=== PATIENT | male | born 1960 | race Caucasian/White ===

== ENCOUNTER 2018-03-23 14:25 | Emergency (ER) | payer OTHER ==
[~2018-03-23] VITALS: Ht 180.3 cm; Wt 77.3 kg
[~2018-03-23 14:25] MED LIST: ALBU8.5H8 IH; GABA-533 PO; HYDR-3971 PO; IPRA4AER IH; LISI-662 PO; TEMA15CA PO
[2018-03-23 14:31] VITALS: BP 134/84
[2018-03-23] MEDS ORDERED: LACT30L PO (14:33)
[2018-03-23] MEDS ORDERED: NALOXONE HCL 1 MG/ML 2 ML SYG IVP ONE (15:00)
== END 2018-03-23 15:12 | disposition left against medical advice (07) ==
LOC: EMS 14:26
DX: R53.1 Weakness (principal); F11.10 Opioid abuse, uncomplicated; R53.83 Other fatigue; J44.9 Chronic obstructive pulmonary disease, unspecified; I10 Essential (primary) hypertension; Z88.1 Allergy status to other antibiotic agents; Z79.899 Other long term (current) drug therapy
CPT/HCPCS: 99283

== ENCOUNTER 2018-03-23 19:00 | Emergency (ER) | payer OTHER ==
[~2018-03-23] VITALS: Ht 177.8 cm; Wt 83.2 kg
[~2018-03-23 19:00] MED LIST changes: +LACT30L PO
[2018-03-23 19:04] VITALS: BP 114/75
[2018-03-23 19:54] LABS: GLUCOSE,POINT OF CARE 93 MG/DL (70-110)
[2018-03-23] MEDS ORDERED: NALOXONE HCL 1 MG/ML 2 ML SYG IM ONE (20:00)
== END 2018-03-23 20:35 | disposition left against medical advice (07) ==
LOC: EMS 19:04
DX: F11.10 Opioid abuse, uncomplicated (principal); J44.9 Chronic obstructive pulmonary disease, unspecified; I10 Essential (primary) hypertension; B19.20 Unspecified viral hepatitis C without hepatic coma; Z53.21 Procedure and treatment not carried out due to patient leaving prior to being seen by health care provider; Z88.1 Allergy status to other antibiotic agents; Z79.899 Other long term (current) drug therapy
CPT/HCPCS: 82962; 99282; J2310; 99281